=== PATIENT | male | born 1985 | race Caucasian/White ===

== ENCOUNTER → 2016-03-31 | Outpatient (REF) | payer BC ==
[2016-03-31 14:12] LABS: BASO % 0.4 % (0.0-1.0); EOS # 0.1 K/mm3 (0.0-0.50); EOS % 1.8 % (0.0-3.0); LARGE UNSTAINED CELL # 0.1 K/mm3 (0.0-0.4); LARGE UNSTAINED CELL % 2.1 % (0.0-4.0); LYMPH # 1.7 K/mm3 (1.5-4.5); LYMPH % 30.1 % (24.0-44.0); MEAN CORPUSCULAR HEMOGLOBIN 31.8 pg (27.0-33.0); MEAN CORPUSCULAR HGB CONC 34.5 g/dl (32.0-36.5); MEAN CORPUSCULAR VOLUME 92.1 fl (80.0-96.0); MONO # 0.3 K/mm3 (0.0-0.8); MONO % 5.4 % (0.0-5.0); NEUTROPHILS # 3.4 K/mm3 (1.8-7.7); NEUTROPHILS % 60.3 % (36.0-66.0); PLATELET COUNT, AUTOMATED 189 k/mm3 (150-450); RED CELL DISTRIBUTION WIDTH 12.1 % (11.5-14.5); WHITE BLOOD COUNT 5.6 K/mm3 (4.0-10.0)
[2016-03-31 14:38] LABS: ALBUMIN 4.8 GM/DL (3.2-5.2); ALBUMIN/GLOBULIN RATIO 1.85 (1.00-1.93); ALKALINE PHOSPHATASE 46 U/L (45-117); ALT/SGPT 25 U/L (12-78); ANION GAP 8 MEQ/L (8-16); AST/SGOT 13 U/L (15-37); BILIRUBIN,TOTAL 0.2 MG/DL (0.2-1.0); BLOOD UREA NITROGEN 23 MG/DL (7-18); CALCIUM LEVEL 9.7 MG/DL (8.5-10.1); CARBON DIOXIDE LEVEL 29 MEQ/L (21-32); CHLORIDE LEVEL 104 MEQ/L (98-107); GLOMERULAR FILTRATION RATE > 60.0 (>60); GLUCOSE, FASTING 96 MG/DL (70-105); POTASSIUM SERUM 4.2 MEQ/L (3.5-5.1); SODIUM LEVEL 141 MEQ/L (136-145); TOTAL PROTEIN 7.4 GM/DL (6.4-8.2)
== END ==
LOC: M LABNEURO 13:35
PROVIDERS: ATTEND Psychiatry & Neurology Neurology
DX: G44.009 Cluster headache syndrome, unspecified, not intractable (principal)

== ENCOUNTER → 2016-12-20 | Outpatient (REF) | payer OTHER, SELFPAY ==
[2016-12-20 19:26] LABS: AMYLASE 37 U/L (25-115)
== END ==
LOC: M LAB REF 17:36
PROVIDERS: ATTEND Nurse Practitioner Family
DX: R10.13 Epigastric pain (principal)

== ENCOUNTER → 2018-03-09 | Outpatient (CLI) | payer BC ==
--- NOTE | 2018-03-09 09:28 | REP ---
KUB ABDOMEN: Two KUB films of the abdomen and pelvis were performed and compared to prior study of 02/03/2015. There is no evidence of small bowel obstruction. There is mild to moderate fecal material in the transverse and right colon. Several phleboliths are seen inferiorly in the pelvis. The visualized osseous structures appear unremarkable. IMPRESSION: Unremarkable exam with no evidence of obstruction. Phleboliths seen in the pelvis. Electronically Signed by Amando Bhatia MD 03/09/2018 10:27 A
[2018-03-09 11:52] LABS: BASO % 0.2 % (0.0-1.0); EOS % 0.4 % (0.0-3.0); HEMATOCRIT 44.4 % (42.0-52.0); HEMOGLOBIN 14.8 g/dl (13.5-17.5); LYMPH # 1.5 10^3/uL (1.5-4.5); LYMPH % 12.9 % (24.0-44.0); MEAN CORPUSCULAR HEMOGLOBIN 30.4 pg (27.0-33.0); MEAN CORPUSCULAR HGB CONC 33.3 g/dl (32.0-36.5); MEAN CORPUSCULAR VOLUME 91.2 fl (80.0-96.0); MONO # 0.9 10^3/uL (0.0-0.8); MONO % 7.7 % (0.0-5.0); NEUTROPHILS % 78.5 % (36.0-66.0); PLATELET COUNT, AUTOMATED 165 10^3/uL (150-450); RED BLOOD COUNT 4.87 10^6/uL (4.30-6.10); WHITE BLOOD COUNT 11.4 10^3/uL (4.0-10.0)
[2018-03-09 11:58] LABS: ALBUMIN 4.4 GM/DL (3.2-5.2); ALT/SGPT 23 U/L (12-78); AMYLASE 32 U/L (25-115); BILIRUBIN,TOTAL 0.6 MG/DL (0.2-1.0); BLOOD UREA NITROGEN 13 MG/DL (7-18); CALCIUM LEVEL 9.6 MG/DL (8.5-10.1); CARBON DIOXIDE LEVEL 31 MEQ/L (21-32); CHLORIDE LEVEL 100 MEQ/L (98-107); GLOMERULAR FILTRATION RATE > 60.0 (>60); GLUCOSE, FASTING 86 MG/DL (70-100); LIPASE 110 U/L (73-393); POTASSIUM SERUM 4.5 MEQ/L (3.5-5.1); SODIUM LEVEL 138 MEQ/L (136-145); TOTAL PROTEIN 7.2 GM/DL (6.4-8.2)
[2018-03-09 12:25] LABS: ERYTHROCYTE SEDIMENTATION RATE 29 mm/hr (0-15)
== END ==
LOC: M WUC 08:38
PROVIDERS: ATTEND Physician Assistant
DX: I87.8 Other specified disorders of veins (principal); R10.814 Left lower quadrant abdominal tenderness

== ENCOUNTER → 2018-08-18 | Outpatient (REF) | payer BC ==
[2018-08-18 13:30] LABS: BASO % 0.3 % (0.0-1.0); EOS # 0.1 10^3/uL (0.0-0.50); EOS % 1.1 % (0.0-3.0); HEMATOCRIT 42.9 % (42.0-52.0); HEMOGLOBIN 14.5 g/dl (13.5-17.5); LYMPH # 2.1 10^3/uL (1.5-4.5); MEAN CORPUSCULAR HEMOGLOBIN 30.8 pg (27.0-33.0); MEAN CORPUSCULAR HGB CONC 33.8 g/dl (32.0-36.5); MEAN CORPUSCULAR VOLUME 91.1 fl (80.0-96.0); MONO # 0.5 10^3/uL (0.0-0.8); MONO % 7.2 % (0.0-5.0); NEUTROPHILS # 3.6 10^3/uL (1.8-7.7); NEUTROPHILS % 58.1 % (36.0-66.0); PLATELET COUNT, AUTOMATED 183 10^3/uL (150-450); RED BLOOD COUNT 4.71 10^6/uL (4.30-6.10); WHITE BLOOD COUNT 6.2 10^3/uL (4.0-10.0)
[2018-08-18 13:41] LABS: INR 0.99; PARTIAL THROMBOPLASTIN TIME 34.2 SECONDS (25.0-38.4); PROTHROMBIN TIME 12.8 SECONDS (11.8-14.0)
== END ==
LOC: M LAB REF 13:16
PROVIDERS: ATTEND Physician Assistant Medical
DX: R23.3 Spontaneous ecchymoses (principal)

== ENCOUNTER 2019-03-29 22:57 | Emergency (ER) | payer BC, OTHER ==
[~2019-03-29] VITALS: Ht 188 cm; Wt 96.9 kg
[2019-03-29] MEDS ORDERED: IBUP-1022 (23:03)
[2019-03-29] MEDS ORDERED: SUMA50TA2 (23:03)
[2019-03-29] MEDS ORDERED: HYDR-3713 (23:03)
[2019-03-29] MEDS ORDERED: NORT25CA2 (23:03)
[2019-03-30] MEDS ORDERED: KETOROLAC 30 MG/ML VIAL (J1885) IV ONE (01:00)
[2019-03-30] MEDS ORDERED: METOCLOPRAMIDE INJ 10MG/2ML VIAL (J2765) IV ONE (01:00)
[2019-03-30] MEDS ORDERED: NS 1,000 ML IV ONE (01:00)
[2019-03-30] MEDS ORDERED: diphenhydrAMINE INJ 50MG/ML VIAL (J1200) IV ONE (01:00)
[2019-03-30 03:15] VITALS: BP 153/83
== END 2019-03-30 04:27 | disposition home or self-care (01) ==
LOC: M ED 22:57
DX: G43.709 Chronic migraine without aura, not intractable, without status migrainosus (principal); Z79.899 Other long term (current) drug therapy; Z82.0 Family history of epilepsy and other diseases of the nervous system
CPT/HCPCS: 96374; 96375; 99284; J1200; J1885; J2765

== ENCOUNTER → 2020-04-14 | Outpatient (REF) | payer OTHER ==
[~2020-04-14] MED LIST: HYDR-3713; IBUP-1022; NORT25CA2; SUMA50TA2
[2020-04-16 08:08] LABS: LDL DIRECT 165 mg/dL (0-99)
== END ==
LOC: M LAB REF 12:38
PROVIDERS: ATTEND Registered Nurse
DX: E78.00 Pure hypercholesterolemia, unspecified (principal)

== ENCOUNTER → 2020-10-16 | Outpatient (CLI) | payer OTHER ==
--- NOTE | 2020-10-16 11:07 | REPVR ---
PROCEDURE INFORMATION: Exam: MR Head Without Contrast Exam date and time: 10/16/2020 7:51 AM Age: 35 years old Clinical indication: Pain; Headache; Migraine; Aura effect not specified; Does respond to medication; Severity not specified TECHNIQUE: Imaging protocol: MR of the head without contrast. COMPARISON: No relevant prior studies available. FINDINGS: Brain: No acute infarct identified on the diffusion-weighted imaging. No evidence of brain parenchymal edema or intracranial mass effect. No significant white matter disease. Cerebral ventricles: Normal. No ventriculomegaly. Bones/joints: Unremarkable. 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 Left maxillary sinus retention cyst or polyp. Mastoid air cells: Normal as visualized. No mastoid effusion. Orbital cavity: Unremarkable. Soft tissues: Unremarkable. IMPRESSION: Unremarkable MRI brain. Electronically signed by: Reena Renae On 10/16/2020 11:07:44 AM
== END ==
LOC: M RAD 07:13
PROVIDERS: ATTEND Registered Nurse
DX: G43.909 Migraine, unspecified, not intractable, without status migrainosus (principal)

== ENCOUNTER 2020-10-29 08:49 | Emergency (ER) | payer OTHER ==
[~2020-10-29] VITALS: Ht 188 cm; Wt 90.9 kg
[2020-10-29] MEDS ORDERED: SUMA6INJ20 (09:03)
[2020-10-29] MEDS ORDERED: PRED20TA (09:03)
[2020-10-29] MEDS ORDERED: VERA40TA (09:03)
[2020-10-29] MEDS ORDERED: METOCLOPRAMIDE INJ 10MG/2ML VIAL (J2765 PER 1) IV ONE (12:05)
[2020-10-29] MEDS ORDERED: KETOROLAC 30 MG/ML 1ML VIAL IV ONE (13:15)
[2020-10-29 13:44] VITALS: BP 130/82
== END 2020-10-29 14:19 | disposition home or self-care (01) ==
LOC: M ED 08:49
DX: G44.009 Cluster headache syndrome, unspecified, not intractable (principal); J45.909 Unspecified asthma, uncomplicated; Z79.899 Other long term (current) drug therapy
CPT/HCPCS: 96374; 96375; 99284; J1885; J2765

== ENCOUNTER 2021-06-05 16:20 | Emergency (ER) | payer OTHER ==
[~2021-06-05] VITALS: Ht 188 cm; Wt 91.2 kg
[~2021-06-05 16:20] MED LIST changes: +PRED20TA; +SUMA6INJ20; +VERA40TA
[2021-06-05] MEDS ORDERED: FLUORESCEIN OPHTH 1 MG STRIP OU ONE (17:55)
[2021-06-05] MEDS ORDERED: PROPARACAINE 0.5% OPHTH SOL 15ML OU ONE (17:55)
[2021-06-05] MEDS ORDERED: BACIOIN23 OP (18:25)
[2021-06-05 18:36] VITALS: BP 137/84
[2021-06-05] MEDS ORDERED: ERYTHROMYCIN OPHTH OINT OD ONE (18:40)
== END 2021-06-05 19:23 | disposition home or self-care (01) ==
LOC: M ED 16:20
DX: H11.421 Conjunctival edema, right eye (principal)

== ENCOUNTER 2023-12-27 17:24 | Emergency (ER) | payer OTHER ==
[~2023-12-27] VITALS: Ht 188 cm; Wt 87.3 kg
[~2023-12-27 17:24] MED LIST changes: +BACIOIN23 OP
[2023-12-27] MEDS ORDERED: SUMA20SP4 (17:36)
[2023-12-27] MEDS ORDERED: AMOX875T (17:36)
[2023-12-27] MEDS ORDERED: KETO10TAB (17:36)
[2023-12-27] MEDS ORDERED: SUMA100T2 (17:36)
[2023-12-27 18:24] LABS: BASO % 0.3 % (0.0-1.0); EOS # 0.1 10^3/uL (0.0-0.5); HEMATOCRIT 42.5 % (42.0-52.0); HEMOGLOBIN 14.5 g/dl (13.5-17.5); LYMPH # 2.8 10^3/uL (1.5-5.0); LYMPH % 30.8 % (24.0-44.0); MEAN CORPUSCULAR HEMOGLOBIN 30.6 pg (27.0-33.0); MEAN CORPUSCULAR HGB CONC 34.1 g/dl (32.0-36.5); MEAN CORPUSCULAR VOLUME 89.7 fl (80.0-96.0); MONO # 0.8 10^3/uL (0.0-0.8); MONO % 8.1 % (2.0-8.0); NEUTROPHILS # 5.4 10^3/uL (1.5-8.5); NEUTROPHILS % 59.1 % (36.0-66.0); PLATELET COUNT, AUTOMATED 296 10^3/uL (150-450); RED BLOOD COUNT 4.74 10^6/uL (4.30-6.10); WHITE BLOOD COUNT 9.2 10^3/uL (4.0-10.0)
[2023-12-27 18:32] LABS: CK-MB VALUE MASS < 1.0 NG/ML (<3.6)
[2023-12-27 18:35] LABS: BLOOD UREA NITROGEN 12 MG/DL (9-23); CARBON DIOXIDE LEVEL 22 MMOL/L (20-31); CHLORIDE LEVEL 104 MMOL/L (98-107); CPK CREATINE PHOSPHOKINASE 203 U/L (46-171); GLOMERULAR FILTRATION RATE > 60.0 (>60); GLUCOSE, FASTING 106 MG/DL (60-100); MB/CK RELATIVE INDEX 0.49 (< OR =4); POTASSIUM SERUM 3.2 MMOL/L (3.5-5.1); SODIUM LEVEL 140 MMOL/L (136-145)
[2023-12-27 18:37] LABS: THYROID STIMULATING HORMONE 1.692 uIU/ML (0.55-4.78)
[2023-12-27 18:45] VITALS: TEMP 96.9
[2023-12-27] MEDS: diphenhydrAMINE 50MG/ML VIAL IV ONE (22:05)
[2023-12-27] MEDS: dexAMETHasone 20MG/5ML VIAL IV ONE (22:05)
[2023-12-27] MEDS: METOCLOPRAMIDE INJ 10MG/2ML VIAL IV ONE (22:06)
[2023-12-27 23:00] VITALS: BP 121/73; O2SAT 98
== END 2023-12-27 23:15 | disposition home or self-care (01) ==
LOC: M ED 17:24
DX: R51.9 Headache, unspecified (principal); R55 Syncope and collapse; Z79.2 Long term (current) use of antibiotics; Z79.899 Other long term (current) drug therapy
CPT/HCPCS: 70450; 80048; 82550; 82553; 84443; 84484; 85025; 93005; 93041; 94760; 96374; 96375; 99285; J1100; J1200; J2765

== ENCOUNTER 2024-01-06 13:41 | Emergency (ER) | payer OTHER ==
[~2024-01-06] VITALS: Ht 188 cm; Wt 96.3 kg
[~2024-01-06 13:41] MED LIST changes: +AMOX875T; +KETO10TAB; +SUMA100T2; +SUMA20SP4
[2024-01-06] MEDS ORDERED: EXCETAB32 PO (14:04)
[2024-01-06 14:34] VITALS: BP 144/80; TEMP 97.2; O2SAT 100
[2024-01-06] MEDS: diphenhydrAMINE 50MG/ML VIAL IV STA (14:36)
[2024-01-06] MEDS: PROCHLORPERAZINE 10MG 2ML VIAL IV PRN (14:36)
== END 2024-01-06 15:39 | disposition home or self-care (01) ==
LOC: M ED 13:41
DX: G44.019 Episodic cluster headache, not intractable (principal); Z79.1 Long term (current) use of non-steroidal anti-inflammatories (NSAID); Z79.899 Other long term (current) drug therapy
CPT/HCPCS: 96374; 99284; J0780; J1200